=== PATIENT | male | born 1980 | race Two or more races ===

== ENCOUNTER 2025-02-21 15:02 | Emergency (ER) | payer MEDICAID, SELFPAY ==
[2025-02-21 15:03] VITALS: PULSE 90; O2SAT 99; BMI 25.8
[2025-02-21 15:15] VITALS: BP 125/76; PULSE 72; RESP 18; TEMP 36.7; O2SAT 97
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
[2025-02-21] MEDS: ACETAMINOPHEN 500 MG TABLET 1000 MG PO (17:08)
[2025-02-21] MEDS: DIPHTH,PERTUSS(ACELL),TET VAC 0.5 ML SYR- ADULT IMi (17:09)
== END 2025-02-21 18:10 | disposition home or self-care (01) ==
PROVIDERS: Emergency Provider Emergency Medicine
DX: S01.01XA Laceration without foreign body of scalp, initial encounter (principal); S50.12XA Contusion of left forearm, initial encounter; M25.521 Pain in right elbow; R51.9 Headache, unspecified; W22.8XXA Striking against or struck by other objects, initial encounter
CPT/HCPCS: 12001; 70450; 73080; 73090; 90471; 90715; 99284; A9270